=== PATIENT | female | born 1995 | race Caucasian/White ===

== ENCOUNTER 2019-03-29 10:00 | Outpatient (REF) | payer OTHER, SELFPAY ==
--- NOTE | 2019-03-29 08:45 | PAPFT_PTH ---
PATIENT: PAKO LOVING LOC: [facility] U#:[id number] AGE/SX: 23/F ROOM: RE03/29/[address]: Meghann Potts : 1995 BED: DIS: 03/29/2019 SPEC #: [id number] RECD: 03/29/19 12:54 STATUS: RUDI JOSS #: [id number] HUA: 03/29/19 08:[address]: Meghann Potts DEPT: [facility] Cytology RECD BY: Jerrica Cole ENTERED: 03/29/19 12:54 SP TYPE: PAPFT OTHR DR: Dana Carlos Tissues: 1 - CX/ENDOCX FOR PAP SMEARS Procedures: PAP THIN PREP/[facility] Screening Comments: [id number]
== END 2019-03-29 10:20 ==
LOC: NCHCN 10:00
PROVIDERS: PCP Nurse Practitioner Adult Health; Visit Provider Nurse Practitioner Family
DX: Z00.00 Encounter for general adult medical examination without abnormal findings (principal); Z12.4 Encounter for screening for malignant neoplasm of cervix; Z11.51 Encounter for screening for human papillomavirus (HPV)
CPT/HCPCS: 88142